=== PATIENT | female | born 1945 | race Caucasian/White ===

== ENCOUNTER 2022-01-26 15:45 | Emergency (ER) | payer MEDICARE ==
[2022-01-26 17:11] LABS: HEMOGLOBIN 11.9 gm/dl (12.3-15.3); RED BLOOD COUNT 4.02 M/UL (4.00-5.10); WHITE BLOOD COUNT 11.1 K/UL (4.5-11.0)
[2022-01-26] MEDS ORDERED: MECLIZINE HCL25 MG PO (18:45)
== END 2022-01-26 19:02 | disposition home or self-care (01) ==
LOC: ER1 15:45
PROVIDERS: Physician Assistant
DX: E86.0 Dehydration (principal); I10 Essential (primary) hypertension; Z88.5 Allergy status to narcotic agent; Z88.8 Allergy status to other drugs, medicaments and biological substances
CPT/HCPCS: 70450; 80053; 81001; 82550; 82553; 84484; 85025; 93005; 96360; 99284